=== PATIENT | male | born 1980 | race Caucasian/White ===

== ENCOUNTER 2019-07-13 00:50 | Emergency (ER) | payer SELFPAY ==
[2019-07-13 00:55] VITALS: BP 133/77; PULSE 114; RESP 20; TEMP 36.6; O2SAT 97; BMI 44.9
[2019-07-13] MEDS: 0.9% Normal Saline 1,000 ML 1000 ML IV (01:34)
[2019-07-13 01:43] LABS: Absolute Lymphocyte Count 2.25 X10^3/uL (0.83-4.51); Absolute Neutrophil Count 7.2 X10^3/uL (2.0-7.7); Basophil# 0.03 X10^3/uL; Basophil% 0.3 % (0-1); Eosinophil# 0.08 X10^3/uL; Eosinophils% 0.8 % (0-5); Hematocrit 31.5 % (40-54); Hemoglobin 10.6 g/dL (13.0-16.5); Lymphocyte # 2.25 X10^3/ul (4.0); Lymphocyte % 21.7 % (19-41); Mean Corp Hgb Conc 33.7 g/dL (32-36); Mean Corpuscular Hgb 31.5 pg (27.0-32.0); Mean Corpuscular Volume 93.8 fL (80-94); Mean Platelet Vol. 10.8 fl (6.2-12.0); Monocyte# 0.81 X10^3/uL; Monocyte% 7.8 % (0-10); NRBC Flagged by Analyzer 0 % (0-5); Neutrophil # 7.16 X10^3/uL (2.7-7.7); Neutrophil % 69.1 % (47-70); POSITIVE COUNT YES; Platelet Count 97 K/mm3 (150-450); RBC Distribution Width CV 12.9 % (11.6-14.6); RBC Distribution Width SD 44.1 fl (35.1-43.9); Red Blood Count 3.36 M/mm3 (4.6-6.2); White Blood Count 10.4 K/mm3 (4.4-11.0)
[2019-07-13 01:44] VITALS: BP 107/61; PULSE 95; RESP 22; O2SAT 96
--- NOTE | 2019-07-13 01:45 | ED.RN ---
patient has large emesis of blood and large clots, patient light headed pale and sweating, after vomiting patient stated he started to feel better. Doctor made aware.
[2019-07-13 01:53] LABS: Differential Indicated SCAN CRITERIA MET
[2019-07-13 02:06] VITALS: BP 108/57; BP 116/60; BP 72/48; PULSE 86; PULSE 94; PULSE 97
[2019-07-13 02:10] LABS: AST(SGOT) 34 U/L (15-37); Alanine Aminotransfer ALT/SGPT 41 U/L (16-61); Albumin, Serum 3.1 g/dL (3.2-5.0); Alkaline Phosphatase 83 U/L (45-117); Anion Gap 7 (5-15); BUN 34 mg/dL (7-18); BUN/Creat Ratio 46.8 RATIO (10-20); Calcium,Total 8.1 mg/dL (8.5-10.1); Chloride 111 mmol/L (98-107); Creatinine, Serum 0.73 mg/dL (0.70-1.30); EST Glomerular Filtration Rate 129 mL/min (>60); Est Glom Filt Rate - Afr Amer 156 mL/min (>60); Estimated Creatinine Clearance 163.98 ml/min; Glucose 141 mg/dL (74-106); Potassium 4.4 mmol/L (3.5-5.1); Protein, Total 6.1 g/dL (6.4-8.2); Sodium Level 141 mmol/L (136-145)
[2019-07-13 02:28] VITALS: BP 115/56; PULSE 101; RESP 24; O2SAT 95
--- NOTE | 2019-07-13 02:28 | ED.RN ---
patient has been accepted to [facility] [id number]
[2019-07-13 02:38] LABS: Platelet Estimate MOD DEC (ADEQ)
--- NOTE | 2019-07-13 02:46 | ED.DCSUM_ITS ---
- ER Visit Summary Date of Service: 07/13/19 Chief Complaint: [Hematemesis] History of Present Illness: The patient is a 39 M [presents the emergency department complaint of hematemesis this evening. Patient states that he started feeling bad 3 days ago while at work. Patient the following morning had a black tarry stool and had one episode of hematemesis. Patient's had 2 episodes of hematemesis tonight. He denies using NSAIDs. He denies any abdominal trauma. He denies significant abdominal pain. He is never had upper GI bleed or ulcer diagnosed. Has not had recent illness. Denies fever. Patient not on any blood thinners. Patient's mother had history of some sort of liver failure that was related to an enzyme that her liver could make. Patient's mother had history of upper GI bleeds.] Physical Examination: [HEENT-PERRLA, EOMI. Cranial nerves II through XII debra sly intact. TMs clear. Mucous membranes moist. No adenopathy. Patient pale appearing and diaphoretic. Cardiovascular-regular rate and rhythm without murmur or ectopy Lungs-clear to auscultation, chest wall stable without crepitus or subcu emphysema Abdomen-normoactive bowel sounds, soft, nontender, no rebound or rigidity, no peritoneal signs. Extremities-intact ?4, normal range of motion, normal pulses, atraumatic] Test Results: [CBC with differential obtained showed a white count 10.4, hemoglobin 10.6, hematocrit 31, placed 97. Chemistries unremarkable. BUN was 34 creatinine 0.73. LFTs were normal. PTT and INR as well as PT ordered and pending.] Orthostatic vital signs were positive and patient became dizzy and blood pressure dropped into the 70 systolic. Emergency Department Course and Treatment: [Case was discussed with general surgeon on-call as well as hospitalist. I was advised to transfer patient. Blaze abraham would like to go to [facility]. Discussed with [facility] and patient was accepted to the ICU there by . Patient was ordered 2 units of O- blood.] 2 large-bore IVs established on arrival. Patient was ordered a liter mostly fluid bolus on arrival. Patient was ordered a Protonix drip. Treatment Plan: [Patient will be transferred to [facility]] Disposition: [Transfer] Impression: [Upper GI bleed Anemia -symptomatic] This note was generated with [employer] dictation software. It may contain incorrect words, spelling, and punctuation that were not noted in review of the chart prior to signing ED Disposition - Plan for ED Patient: Referrals: Care Physician,No Primary [Primary Care Provider] -
--- NOTE | 2019-07-13 02:47 | ED.RN ---
physicians ambulance unable to do run at this time
[2019-07-13 02:54] LABS: Lactic Acid 1.3 mmol/L (0.4-1.9)
[2019-07-13 02:56] LABS: International Normalized Ratio 1.2; Prothrombin Time (Protime)PT. 15.5 SECONDS (11.7-14.9)
[2019-07-13 03:03] VITALS: BP 113/60; PULSE 86; RESP 17; O2SAT 98
--- NOTE | 2019-07-13 03:03 | ED.RN ---
blood products held at this time due to transport enroute. Dr. Forde made aware.
--- NOTE | 2019-07-13 03:11 | ED.RN ---
report given to [facility] ambulance at this time
== END 2019-07-13 03:15 | disposition short-term general hospital (02) ==
PROVIDERS: Emergency Provider Emergency Medicine
DX: K92.0 Hematemesis (principal); K92.1 Melena; D64.9 Anemia, unspecified; Z72.0 Tobacco use; Z83.79 Family history of other diseases of the digestive system
CPT/HCPCS: 80053; 83605; 85025; 85610; 85730; 86850; 86900; 86901; 86920; 86922; 96365; 99285; J7030; A4216

== ENCOUNTER → 2019-10-21 15:51 | Outpatient (CLI) | payer OTHER, SELFPAY ==
[2019-10-21 15:11] VITALS: BMI 44.9
[2019-10-21 16:25] LABS: Absolute Lymphocyte Count 1.38 X10^3/uL (0.83-4.51); Absolute Neutrophil Count 1.7 X10^3/uL (2.0-7.7); Basophil# 0.02 X10^3/uL; Basophil% 0.6 % (0-1); Eosinophil# 0.04 X10^3/uL; Eosinophils% 1.1 % (0-5); Hematocrit 39.7 % (40-54); Hemoglobin 12.5 g/dL (13.0-16.5); Lymphocyte # 1.38 X10^3/ul (4.0); Lymphocyte % 39.2 % (19-41); Mean Corp Hgb Conc 31.5 g/dL (32-36); Mean Corpuscular Hgb 28.3 pg (27.0-32.0); Mean Corpuscular Volume 89.8 fL (80-94); Mean Platelet Vol. 10.5 fl (6.2-12.0); Monocyte# 0.34 X10^3/uL; Monocyte% 9.7 % (0-10); NRBC Flagged by Analyzer 0 % (0-5); Neutrophil # 1.74 X10^3/uL (2.7-7.7); Neutrophil % 49.4 % (47-70); POSITIVE COUNT YES; Platelet Count 82 K/mm3 (150-450); Red Blood Count 4.42 M/mm3 (4.6-6.2); White Blood Count 3.5 K/mm3 (4.4-11.0)
[2019-10-21 16:37] LABS: Differential Indicated SCAN CRITERIA MET
[2019-10-21 16:57] LABS: ALB/GLOB Ratio 0.9 RATIO (0.9-2.4); AST(SGOT) 34 U/L (15-37); Alanine Aminotransfer ALT/SGPT 30 U/L (16-61); Albumin, Serum 3.8 g/dL (3.2-5.0); Alkaline Phosphatase 103 U/L (45-117); Anion Gap 2 (5-15); BUN 15 mg/dL (7-18); BUN/Creat Ratio 21.7 RATIO (10-20); Calcium,Total 8.7 mg/dL (8.5-10.1); Chloride 109 mmol/L (98-107); Cholesterol 271 mg/dL (200); Creatinine, Serum 0.69 mg/dL (0.70-1.30); EST Glomerular Filtration Rate 136 mL/min (>60); Est Glom Filt Rate - Afr Amer 164 mL/min (>60); Globulin 4.3 g/dL (2.2-4.2); Glucose 60 mg/dL (74-106); High Density Lipoprotein 55 mg/dL; Potassium 4.1 mmol/L (3.5-5.1); Protein, Total 8.1 g/dL (6.4-8.2); Sodium Level 140 mmol/L (136-145); T4 Free Direct 0.97 ng/dL (0.76-1.46); Thyroid Stim Hormone (TSH) 2.13 uIU/mL (0.358-3.74); Triglycerides 127 mg/dL; Very Low Density Lipoprotein 25 mg/dL (5-40)
[2019-10-21 18:57] LABS: Platelet Estimate MOD DEC (ADEQ)
[2019-10-21 18:58] LABS: Red Cell Morphology NORM C+C NORMAL (NORM C&C)
== END ==
PROVIDERS: PCP Internal Medicine; Referring Provider Internal Medicine; Visit Provider Internal Medicine
DX: K74.60 Unspecified cirrhosis of liver (principal); I10 Essential (primary) hypertension; Z13.29 Encounter for screening for other suspected endocrine disorder
CPT/HCPCS: 36415; 80053; 80061; 84439; 84443; 85025

== ENCOUNTER → 2020-09-09 11:33 | Outpatient (CLI) | payer BC, SELFPAY ==
[2020-09-09 11:11] VITALS: BMI 53.8
[2020-09-09 15:15] LABS: Absolute Lymphocyte Count 1.17 X10^3/uL (0.83-4.51); Absolute Neutrophil Count 2.2 X10^3/uL (2.0-7.7); Basophil# 0.03 X10^3/uL; Basophil% 0.8 % (0-1); Eosinophil# 0.03 X10^3/uL; Eosinophils% 0.8 % (0-5); Hematocrit 45.4 % (40-54); Hemoglobin 14.8 g/dL (13.0-16.5); Lymphocyte # 1.17 X10^3/ul (0.83-4.51); Lymphocyte % 31.5 % (19-41); Mean Corp Hgb Conc 32.6 g/dL (32-36); Mean Corpuscular Hgb 31.5 pg (27.0-32.0); Mean Corpuscular Volume 96.6 fL (80-94); Mean Platelet Vol. 10.8 fl (6.2-12.0); Monocyte% 8.1 % (0-10); NRBC Flagged by Analyzer 0 % (0-5); Neutrophil # 2.17 X10^3/uL (2.7-7.7); Neutrophil % 58.5 % (47-70); POSITIVE COUNT YES; Platelet Count 82 K/mm3 (150-450); RBC Distribution Width CV 12.2 % (11.6-14.6); RBC Distribution Width SD 43.7 fl (35.1-43.9); White Blood Count 3.7 K/mm3 (4.4-11.0)
[2020-09-09 15:43] LABS: ALB/GLOB Ratio 0.9 RATIO (0.9-2.4); AST(SGOT) 33 U/L (15-37); Alanine Aminotransfer ALT/SGPT 31 U/L (16-61); Albumin, Serum 3.9 g/dL (3.2-5.0); Alkaline Phosphatase 96 U/L (45-117); Anion Gap 5 (5-15); BUN 17 mg/dL (7-18); BUN/Creat Ratio 18.4 RATIO (10-20); Chloride 105 mmol/L (98-107); Cholesterol 280 mg/dL (200); Creatinine, Serum 0.92 mg/dL (0.70-1.30); EST Glomerular Filtration Rate 97 mL/min (>60); Est Glom Filt Rate - Afr Amer 117 mL/min (>60); Globulin 4.2 g/dL (2.2-4.2); Glucose 96 mg/dL (74-106); High Density Lipoprotein 54 mg/dL; Potassium 4.3 mmol/L (3.5-5.1); Protein, Total 8.1 g/dL (6.4-8.2); Sodium Level 141 mmol/L (136-145); Triglycerides 95 mg/dL; Very Low Density Lipoprotein 19 mg/dL (5-40)
== END ==
PROVIDERS: PCP Internal Medicine; Referring Provider Physician Assistant; Visit Provider Physician Assistant
DX: I10 Essential (primary) hypertension (principal); E88.01 Alpha-1-antitrypsin deficiency; K74.60 Unspecified cirrhosis of liver
CPT/HCPCS: 36415; 80053; 80061; 85025

== ENCOUNTER → 2021-03-29 09:53 | Outpatient (CLI) | payer BC, SELFPAY ==
[2021-03-29 13:02] LABS: ALB/GLOB Ratio 0.8 RATIO (0.9-2.4); AST(SGOT) 33 U/L (15-37); Alanine Aminotransfer ALT/SGPT 33 U/L (16-61); Albumin, Serum 3.4 g/dL (3.2-5.0); Alkaline Phosphatase 104 U/L (45-117); Anion Gap 7 (5-15); BUN 15 mg/dL (7-18); BUN/Creat Ratio 20.8 RATIO (10-20); Calcium,Total 9.1 mg/dL (8.5-10.1); Chloride 108 mmol/L (98-107); Cholesterol 267 mg/dL (200); Creatinine, Serum 0.72 mg/dL (0.70-1.30); EST Glomerular Filtration Rate 129 mL/min (>60); Est Glom Filt Rate - Afr Amer 155 mL/min (>60); Globulin 4.3 g/dL (2.2-4.2); Glucose 110 mg/dL (74-106); High Density Lipoprotein 54 mg/dL; Potassium 4.1 mmol/L (3.5-5.1); Protein, Total 7.7 g/dL (6.4-8.2); Sodium Level 141 mmol/L (136-145); Triglycerides 92 mg/dL; Very Low Density Lipoprotein 18 mg/dL (5-40)
== END ==
LOC: BIMLAB 09:54
PROVIDERS: PCP Internal Medicine; Visit Provider Internal Medicine
DX: E78.5 Hyperlipidemia, unspecified (principal); I10 Essential (primary) hypertension
CPT/HCPCS: 36415; 80053; 80061

== ENCOUNTER → 2021-10-02 | Outpatient (CLI) | payer BC, SELFPAY ==
[2021-10-02 16:42] LABS: Absolute Lymphocyte Count 0.99 X10^3/uL (0.83-4.51); Absolute Neutrophil Count 2.1 X10^3/uL (2.0-7.7); Eosinophil# 0.04 X10^3/uL; Eosinophils% 1.2 % (0-5); Hematocrit 41.9 % (40-54); Hemoglobin 14.1 g/dL (13.0-16.5); Lymphocyte # 0.99 X10^3/ul (0.83-4.51); Lymphocyte % 29.1 % (19-41); Mean Corp Hgb Conc 33.7 g/dL (32-36); Mean Corpuscular Hgb 31.9 pg (27.0-32.0); Mean Corpuscular Volume 94.8 fL (80-94); Mean Platelet Vol. 10.4 fl (6.2-12.0); Monocyte# 0.25 X10^3/uL; Monocyte% 7.4 % (0-10); NRBC Flagged by Analyzer 0 % (0-5); Neutrophil # 2.11 X10^3/uL (2.7-7.7); POSITIVE COUNT YES; Platelet Count 69 K/mm3 (150-450); RBC Distribution Width CV 12.5 % (11.6-14.6); RBC Distribution Width SD 43.8 fl (35.1-43.9); Red Blood Count 4.42 M/mm3 (4.6-6.2); White Blood Count 3.4 K/mm3 (4.4-11.0)
[2021-10-02 16:52] LABS: Differential Indicated SCAN CRITERIA MET
[2021-10-02 17:04] LABS: ALB/GLOB Ratio 0.9 RATIO (0.9-2.4); AST(SGOT) 35 U/L (15-37); Alanine Aminotransfer ALT/SGPT 34 U/L (16-61); Albumin, Serum 3.7 g/dL (3.2-5.0); Alkaline Phosphatase 99 U/L (45-117); Anion Gap 4 (5-15); BUN 17 mg/dL (7-18); BUN/Creat Ratio 18.3 RATIO (10-20); Calcium,Total 9.2 mg/dL (8.5-10.1); Chloride 106 mmol/L (98-107); Cholesterol 280 mg/dL (200); Creatinine, Serum 0.93 mg/dL (0.70-1.30); EST Glomerular Filtration Rate 95 mL/min (>60); Est Glom Filt Rate - Afr Amer 115 mL/min (>60); Globulin 4.2 g/dL (2.2-4.2); Glucose 130 mg/dL (74-106); High Density Lipoprotein 49 mg/dL; Potassium 3.7 mmol/L (3.5-5.1); Protein, Total 7.9 g/dL (6.4-8.2); Sodium Level 140 mmol/L (136-145); Triglycerides 182 mg/dL; Very Low Density Lipoprotein 36 mg/dL (5-40)
[2021-10-02 17:21] LABS: Differential Comment SCANNED
== END | disposition home or self-care (01) ==
LOC: BIMLAB 15:05
PROVIDERS: PCP Internal Medicine; Referring Provider Internal Medicine; Visit Provider Internal Medicine
DX: I10 Essential (primary) hypertension (principal); E78.5 Hyperlipidemia, unspecified
CPT/HCPCS: 36415; 80053; 80061; 85025

== ENCOUNTER → 2022-02-14 | Outpatient (CLI) | payer BC, SELFPAY ==
[2022-02-14 12:28] LABS: ALB/GLOB Ratio 0.9 RATIO (0.9-2.4); AST(SGOT) 34 U/L (15-37); Absolute Neutrophil Count 1.6 X10^3/uL (2.0-7.7); Alanine Aminotransfer ALT/SGPT 34 U/L (16-61); Albumin, Serum 3.6 g/dL (3.2-5.0); Alkaline Phosphatase 107 U/L (45-117); Anion Gap 5 (5-15); BUN 16 mg/dL (7-18); BUN/Creat Ratio 22.9 RATIO (10-20); Basophil# 0.01 X10^3/uL; Basophil% 0.3 % (0-1); Calcium,Total 9.4 mg/dL (8.5-10.1); Chloride 105 mmol/L (98-107); EST Glomerular Filtration Rate 132 mL/min (>60); Eosinophil# 0.05 X10^3/uL; Eosinophils% 1.7 % (0-5); Est Glom Filt Rate - Afr Amer 160 mL/min (>60); Glucose 102 mg/dL (74-106); Hematocrit 43.7 % (40-54); Hemoglobin 14.8 g/dL (13.0-16.5); Lymphocyte % 33.9 % (19-41); Mean Corp Hgb Conc 33.9 g/dL (32-36); Mean Corpuscular Hgb 32.2 pg (27.0-32.0); Mean Platelet Vol. 11.1 fl (6.2-12.0); Monocyte# 0.32 X10^3/uL; Monocyte% 10.8 % (0-10); NRBC Flagged by Analyzer 0 % (0-5); Neutrophil # 1.56 X10^3/uL (2.7-7.7); POSITIVE COUNT YES; Platelet Count 61 K/mm3 (150-450); Potassium 4.1 mmol/L (3.5-5.1); Protein, Total 7.6 g/dL (6.4-8.2); RBC Distribution Width CV 12.4 % (11.6-14.6); RBC Distribution Width SD 43.2 fl (35.1-43.9); Sodium Level 137 mmol/L (136-145)
== END | disposition home or self-care (01) ==
LOC: BIMLAB 10:17
PROVIDERS: PCP Internal Medicine; Referring Provider Physician Assistant; Visit Provider Physician Assistant
DX: Z01.812 Encounter for preprocedural laboratory examination (principal)
CPT/HCPCS: 36415; 80053; 85025

== ENCOUNTER 2022-03-02 11:54 | Day surgery (SDC) | payer BC, SELFPAY ==
[2022-03-02] VITALS (7 sets, daily range): BP systolic 109–138; BP diastolic 61–93; PULSE 61–69; RESP 16; TEMP 36.3–36.4; O2SAT 93–99; BMI 55.9
--- NOTE | 2022-03-02 12:08 | PCM.DC.SUM ---
Providers Primary Care Physician: Dr. Gema Matute MD Reason For Visit: RT FOOT INSTEP PLANTAR FASCIOTOMY Medications at Discharge Home Medications nadolol 40 mg tablet 40 mg PO DAILY #90 tabs 12/02/19 compress.stocking,knee,reg,lrg #2 ea 09/09/20 spironolactone 100 mg tablet 100 mg PO DAILY 09/09/20 rosuvastatin 20 mg tablet 20 mg PO DAILY #60 tabs 12/02/20 hydrochlorothiazide 25 mg tablet 25 mg PO QAM #90 tabs 10/02/21 oxycodone-acetaminophen 5 mg-325 mg tablet 1 tab PO Q6H PRN pain 7 days #28 tabs 03/02/22 Weight / BMI Weight Weight: 204.117 kg D/C Instructions Discharge Diet: No restrictions Discharge Activity: May Shower (May shower with cast bag covering to the right lower extremity) Weight Bearing Status: Partial weight bearing (Protected weightbearing in CAM boot/surgical shoe to right lower extremity) Keep extremity elevated above heart level: Right Leg (Elevate right lower extremity at all times of rest) Call your doctor if you observe: Fever of 101 or Higher, Shortness of breath, Chest pain, Calf discomfort and Uncontrolled pain Change Dressing in: do not change dressing (Physician will change dressings at first postoperative visit) Remove Dressing in: do not remove dressing (Please keep dressings clean, dry, and intact to the right foot) Cleanse incision/area with: Do not get Incision Wet (May shower with cast bag covering to right lower extremity. Do not get wet.) and Keep Dressing Clean & Dry Please Follow Up With: Chaparro Spencer DPM When: Patient has first postoperative visit scheduled in office Meaningful Use Info Meaningful Use Diagnoses (Choose all that apply): None applicable Discharge Plan Admission Attending Provider: Chaparro Spencer Primary Care Provider: Gema Matute Discharge Orders/Prescriptions Prescriptions: New oxycodone-acetaminophen 5-325 mg tablet 1 tab PO Q6H PRN (Reason: pain) 7 Days Qty: 28 0RF Rx Instructions: Take 1-2 Tablets PO q6hrs PRN pain No Action spironolactone 100 mg tablet 100 mg PO DAILY (DME) compress.stocking,knee,reg,lrg Misc See Rx Instructions .ROUTE .MEDSUPPLY Qty: 2 1RF Rx Instructions: wear daily for venous insufficiency 20-30 mmHg rosuvastatin 20 mg tablet 20 mg PO DAILY Qty: 60 2RF hydrochlorothiazide 25 mg tablet 25 mg PO QAM Qty: 90 3RF nadolol 40 mg tablet 40 mg PO DAILY Qty: 90 3RF Referrals / Follow Up: Gema Matute MD [Primary Care Provider] - Chaparro Spencer DPM [Med Staff - Active Staff] - Disposition Disposition (needs filled in before D/C Order can be placed): Home, Self Care
[2022-03-02] MEDS: Lactated Ringers 1,000 ML 15 ML IV (12:14)
[2022-03-02] MEDS: Bupivacaine 0.25% 30 ML Vial (13:30)
--- NOTE | 2022-03-02 14:35 | RAD_ITS ---
EXAM: XR RIGHT FOOT COMPLETE, 3 OR MORE VIEWS CLINICAL INDICATION: Post-op TECHNIQUE: Frontal, lateral and oblique views of the right foot. This report was created using [employer] report generation technology. COMPARISON: None. FINDINGS: BONES/JOINTS: Unremarkable. No acute fracture. No subluxation. Normal alignment. Preservation of the joint space. No sclerotic or destructive changes observed. SOFT TISSUES: Unremarkable. No soft tissue swelling or gas. No radiopaque foreign body. RAD/Foot min 3 Views IMPRESSION: Negative right foot x-rays. Electronically Signed: Dinesh Orozco MD at 16:57 EST ,
--- NOTE | 2022-03-02 15:08 | OP.PCM_ITS ---
Problems Associated Problem List Diagnoses (1) Plantar fasciitis of right foot: (2) Pain in right foot: Report of Operation Date of Procedure: 03/02/22 Pre-Operative Diagnosis: 1. Recalcitrant plantar fasciitis, right foot 2. Pain right foot Post-Operative Diagnosis: 1. Recalcitrant plantar fasciitis, right foot 2. Pain right foot Surgery/Procedure Performed:: Instep plantar fasciotomy right foot Description of Surgical Findings:: See operative note for Surgeon: Chaparro Spencer aviation project manager: Maki Puentes DPM PGY-1 Type of Anesthesia: General and Local (20 cc 1:1 mixture of 1% lidocaine plain and 0.25% Marcaine plain) Specimen's removed: None Drains: None Estimated Blood Loss (mL): < 10mL Description of Procedure: HPI/indication: Patient presents to office end of March 2021 with complaints of right foot pain. Based upon examination and radiographs obtained patient demonstrated pain at the plantar medial calcaneal tubercle consistent with plantar fasciitis of the right foot. Patient did demonstrate some waxing and waning in his improvement over the course of the next few months. 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 Patient had failed conservative therapy of supportive shoe gear, power step inserts, icing to the site of maximum tenderness, oral antiinflammatory course x2, oral steroid course x2, corticosteroid injection to the right heel, immobilization in CAM boot, posterior muscle stretching program, and physical therapy course without improvement in his status. At that time patient wanted to discuss surgical intervention as he is still having pain that is limiting activity impacting daily life despite nonsurgical care. I discussed the surgery in great detail. Patient would like to proceed with the surgical intervention. I reviewed the rationale of the surgery with the patient in great detail. All possible benefits versus risks and potential complications were discussed in detail. Advised the patient on the risks include, but not limited to the following: Pain, continued pain, potential hammertoe deformity, calcaneocuboid joint pain, recurrence, numbness, swelling, neuritis, scarring, poor cosmetic result, bleeding, the need for further surgery/procedures, nonhealing/delayed healing, dehiscence, infection, blood clots, allergic reaction, transfer lesions, loss of function, postoperative arthritis, complex regional pain syndrome, weakness, shoe gear problems, inability to walk, inability to wear shoes, stroke, heart attack, addiction to pain medication, loss of limb, loss of life. Patient expressed understanding and agreement with these and was able to repeat them back. Alternative options were discussed and reviewed with the patient in the great detail, reviewing risks of these were also discussed. Typical postoperative course was reviewed. Patient expressed understanding and agreement. No promises or guarantees were made. Patient expressed understanding of our agreement and wishes to proceed with surgical intervention. Consent forms were reviewed with the patient and freely signed them. He had been cleared for surgery by his primary care physician and was scheduled to undergo instep plantar fasciotomy of the right foot at [facility] on 03/02/2022. Procedure: Under mild sedation patient was brought into the operating placed on the table in supine position. Following IV sedation and induction of general anesthetic, a pneumatic ankle tourniquet was placed about the patient's right ankle. Local anesthetic block was performed about the right ankle consisting of 20 cc of one-to-one mixture of 1% lidocaine plain and 0.25% Marcaine plain. Next, the right foot was scrubbed, prepped, and draped in usual aseptic manner. An Esmarch bandage was used to exsanguinate the right foot and the pneumatic ankle tourniquet was inflated to 250 mmHg. At this time attention was directed to the plantar aspect of the right foot where a 3 cm transverse incision was made slightly distal to the heel pad as it sloped into the arch following the skin lines, overlying the medial and central bands of the plantar fascia. The incision was deepened utilizing blunt and sharp dissection until the fascial bands were visualized. A [place]htlander retractor was inserted into allow for better visualization of the fascial band. The band was noted to be taut. There was also partial longitudinal ruptures of the band that were also noted. At this time a #15 blade was used to transect the medial and central plantar fascial bands. The digits were then dorsiflexed. The muscle belly of the flexor digitorum longus could be visualized beneath the transected fascial bands. The site was then seated for any remaining fibers, which none were determined. The site was then flushed with copious amounts normal sterile saline. The subcutaneous tissues were then closed with a 4-0 Monocryl. The skin was then reapproximated with a 3-0 nylon. At this time the pneumatic ankle tourniquet was deflated and a prompt hyperemic response was noted to the digits of the right foot. The site was dressed with Betadine soaked Adaptic, 4 x 4 gauze, Kerlix, and Jovanni wrap lightly rolled onto the right foot. Patient tolerated the procedure and anesthesia well was transported to the PACU with vital signs stable and vascular status intact to the right foot. Postoperative radiographs were obtained and reviewed. He will be discharged home once anesthesia protocol has been met. Patient has been instructed on his postoperative care. He is permitted to be weightbearing to the right foot with the assistance of a CAM boot. He was instructed to keep dressings clean, dry, and intact. He may shower with the use of the cast bag. He is to elevate the right foot at all times of rest. These discharge instructions were ordered and given to him and family with instructions to call the office for any foot or ankle problems. He is scheduled for his first postoperative appointment in office with me. Grafts/Implants Used: None Complications None Admit VTE Documentation VTE Present on Admission: No VTE Mechan Device Prophylaxis: SCD's VTE Pharm Prophylaxis ordered?: No Reason prophylaxis not ordered:: Procedure Not Indicated
== END 2022-03-02 15:53 | disposition home or self-care (01) ==
LOC: SDC 11:55 → AC 11:56
PROVIDERS: PCP Internal Medicine; Referring Provider Student in an Organized Health Care Education/Training Program; Visit Provider Student in an Organized Health Care Education/Training Program
PROC: (CPT 28008; principal; 2022-03-02 13:15)
DX: M72.2 Plantar fascial fibromatosis (principal); Z79.899 Other long term (current) drug therapy; E78.5 Hyperlipidemia, unspecified; Z87.891 Personal history of nicotine dependence
CPT/HCPCS: 28008; 73630; J7120; J2405